=== PATIENT | female | born 1980 | race African-American/Black ===

== ENCOUNTER 2022-08-11 06:05 | Inpatient (IN) | payer MEDICAID, OTHER ==
[~2022-08-11] VITALS: Ht 152.4 cm; Wt 113.4 kg
[~2022-08-11 06:05] MED LIST: ACET-3163 MT; AMLO5TAB88 MT; HYDR-4001 MT; LANTUSUD SUBCUT; LISI-186 MT; METF-873 PO
[2022-08-11 09:16] LABS: CLARITY URINE CLOUDY (CLEAR); COLOR URINE YELLOW (YELLOW); KETONES URINE 4+ (NEGATIVE); LEUKOCYTE ESTERASE URINE 2+ (NEGATIVE); NITRITE URINE NEGATIVE (NEGATIVE); OCCULT BLOOD URINE 1+ (NEGATIVE); PH URINE 5.5 (4.5-8.0); PROTEIN URINE 1+ (NEGATIVE); SPECIFIC GRAVITY URINE 1.043 (1.005-1.030)
[2022-08-11] MEDS ORDERED: KETOROLAC 30MG/ML VIAL IV ONE (09:30)
[2022-08-11] MEDS ORDERED: SODIUM CHLORIDE 0.9% 1,000 ML IV ONE ×2 (09:30→10:30)
[2022-08-11] MEDS ORDERED: ONDANSETRON HCL 4MG/2ML INJ IV ONE (09:30)
[2022-08-11 09:51] LABS: HEMATOCRIT. 36.7 % (36.0-48.0); HEMOGLOBIN. 12.2 g/dL (12.0-16.0); MEAN CORPUSCULAR HEMOGLOBIN 29.4 pg (28.0-32.0); MEAN CORPUSCULAR VOLUME 88.6 fL (81.0-99.0); MEAN PLATELET VOLUME 9.2 fl (7.4-10.4); PLATELET 366 x1000/uL (130-400); RED BLOOD CELL COUNT 4.14 mill/uL (4.2-5.4); RED CELL DISTRIBUTION WIDTH 13.9 % (11.6-14.6)
[2022-08-11 09:58] LABS: CHLORIDE 96 mEq/L (98-107)
[2022-08-11 10:34] LABS: PLATELET ESTIMATE NORMAL
[2022-08-11 10:52] LABS: BG BASE EXCESS -2.8 mmol/L (-2.0-2.0); BG CARBOXYHEMOGLOBIN 0.7 % (0.5-1.5); BG DEOXYHEMOGLOBIN 3.5 % (0.0-5.0); BG HCO3 ACT 20.3 mmol/L (22.0-26.0); BG METHEMOGLOBIN 0.4 % (0.0-1.5); BG OXYGEN SATURATION 96.5 % (92.0-98.5); BG OXYHEMOGLOBIN 95.4 % (94.0-97.0); BG PCO2 30.6 mmHg (35.0-45.0); BG PO2 87.3 mmHg (75.0-100.0); BG SAMPLE SITE RIGHT RADIAL; BG TOTAL HEMOGLOBIN 12.6 g/dL (12.0-18.0); BG VENT MODE ROOM AIR
[2022-08-11] MEDS ORDERED: IOHEXOL-350 100 ML BOTTLE ONE (11:52)
[2022-08-11] MEDS ORDERED: IOHEXOL-300 100 ML BOTTLE ONE (11:53)
[2022-08-11] MEDS: DOXYCYCLINE 100MG in DEXTROSE 5% WATER 100ML IV SCH ×3 (12:15→15:40)
[2022-08-11] MEDS ORDERED: MORPHINE SULFATE 4 MG/ML CPJ (NOT FOR IM USE) IV ONE (12:45)
[2022-08-11] MEDS: METRONIDAZOLE 500 MG PREMIX 100 ML IV SCH ×2 (13:00→15:48)
[2022-08-11] MEDS: CEFTRIAXONE 1 G PREMIX 50 ML IV SCH ×2 (13:00→16:30)
[2022-08-11 17:00] VITALS: BP 128/67
[2022-08-11 17:30] VITALS: BP 128/67
[2022-08-11] MEDS ORDERED: ONDANSETRON HCL 4MG/2ML INJ IV PRN (18:15)
[2022-08-11] MEDS: SODIUM CHLORIDE 0.9% 1,000 ML IV SCH (18:15)
[2022-08-11] MEDS ORDERED: DEXTROSE 50% WATER 50ML SYRINGE IV PRN (18:15)
[2022-08-11 20:00] VITALS: BP 140/81
[2022-08-11] MEDS ORDERED: NALOXONE HCL 0.4MG/ML VIAL IV PRN (20:15)
[2022-08-11] MEDS: MORPHINE SULFATE 2 MG/ML CPJ (NOT FOR IM USE) IV PRN (20:37)
[2022-08-11] MEDS ORDERED: INSULIN LISPRO 100 UNITS/ML SUBCUT SCH (21:00)
[2022-08-11] MEDS ORDERED: DOXYCYCLINE HYCLATE 100 MG/VIAL IV ONE (21:00)
[2022-08-11] MEDS: BLOOD SUGAR DIAGNOSTIC STRIP TEST SCH (21:02)
[2022-08-11] MEDS: PIPERACILLIN/TAZOBACTAM 3.375 G in DEXTROSE 5% WATER 50 ML IV SCH (21:02)
[2022-08-11] MEDS ORDERED: PIPERACILLIN/TAZOBACTAM 3.375 G in DEXTROSE 5% WATER 50 ML IV SCH (22:00)
[2022-08-11] MEDS: INSULIN LISPRO 100 UNITS/ML SUBCUT SCH (22:00)
[2022-08-12] VITALS: BP 133/82
[2022-08-12] MEDS: MORPHINE SULFATE 2 MG/ML CPJ (NOT FOR IM USE) IV PRN ×5 (01:24→22:13)
[2022-08-12 04:00] VITALS: BP 124/73
[2022-08-12] MEDS: PIPERACILLIN/TAZOBACTAM 3.375 G in DEXTROSE 5% WATER 50 ML IV SCH ×3 (05:46→22:20)
[2022-08-12 06:19] LABS: HEMATOCRIT. 32.8 % (36.0-48.0); HEMOGLOBIN. 10.6 g/dL (12.0-16.0); MEAN CORPUSCULAR HEMOGLOBIN 28.2 pg (28.0-32.0); MEAN CORPUSCULAR VOLUME 87.4 fL (81.0-99.0); MEAN PLATELET VOLUME 8.9 fl (7.4-10.4); PLATELET 318 x1000/uL (130-400); RED BLOOD CELL COUNT 3.75 mill/uL (4.2-5.4); RED CELL DISTRIBUTION WIDTH 14.2 % (11.6-14.6)
[2022-08-12] MEDS: INSULIN LISPRO 100 UNITS/ML SUBCUT SCH ×4 (07:29→22:39)
[2022-08-12] MEDS: SODIUM CHLORIDE 0.9% 1,000 ML IV SCH ×2 (07:29→22:31)
[2022-08-12 07:51] LABS: CHLORIDE 102 mEq/L (98-107)
[2022-08-12 08:00] VITALS: BP 139/77
[2022-08-12] MEDS: BLOOD SUGAR DIAGNOSTIC STRIP TEST SCH ×4 (09:39→21:00)
[2022-08-12] MEDS: PANTOPRAZOLE SODIUM 40 MG/VIAL IV SCH (09:41)
[2022-08-12 14:04] LABS: PLATELET ESTIMATE NORMAL
[2022-08-12 20:00] VITALS: BP 142/85
[2022-08-12] MEDS ORDERED: INSULIN GLARGINE 100 UNITS/ML SUBCUT SCH (22:00)
[2022-08-13] VITALS (18 sets, daily range): BP systolic 107–147; BP diastolic 58–77
[2022-08-13] MEDS: PIPERACILLIN/TAZOBACTAM 3.375 G in DEXTROSE 5% WATER 50 ML IV SCH ×3 (06:01→22:16)
[2022-08-13] MEDS: INSULIN LISPRO 100 UNITS/ML SUBCUT SCH ×4 (06:30→22:19)
[2022-08-13 06:55] LABS: HEMATOCRIT. 31.5 % (36.0-48.0); HEMOGLOBIN. 10.5 g/dL (12.0-16.0); MEAN CORPUSCULAR HEMOGLOBIN 29.2 pg (28.0-32.0); MEAN CORPUSCULAR VOLUME 87.6 fL (81.0-99.0); MEAN PLATELET VOLUME 8.9 fl (7.4-10.4); PLATELET 307 x1000/uL (130-400); RED BLOOD CELL COUNT 3.59 mill/uL (4.2-5.4); RED CELL DISTRIBUTION WIDTH 14.2 % (11.6-14.6)
[2022-08-13] MEDS: BLOOD SUGAR DIAGNOSTIC STRIP TEST SCH ×4 (07:40→21:24)
[2022-08-13 08:21] LABS: CHLORIDE 101 mEq/L (98-107)
[2022-08-13 08:39] LABS: INR 1.5; PROTHROMBIN TIME 15.6 sec (9.6-11.0)
[2022-08-13] MEDS: PANTOPRAZOLE SODIUM 40 MG/VIAL IV SCH (09:01)
[2022-08-13] MEDS: MORPHINE SULFATE 2 MG/ML CPJ (NOT FOR IM USE) IV PRN (09:03)
[2022-08-13] MEDS: INSULIN GLARGINE 100 UNITS/ML SUBCUT SCH ×2 (10:30→22:19)
[2022-08-13] MEDS: SODIUM CHLORIDE 0.9% 1,000 ML IV SCH ×2 (11:02→23:35)
[2022-08-13] MEDS ORDERED: SODIUM BICARBONATE 4% (2.4MEQ) 5ML VIAL IV ONE (12:03)
[2022-08-13] MEDS ORDERED: MIDAZOLAM HCL 2 MG/2 ML VIAL ONE (12:04)
[2022-08-13] MEDS ORDERED: LIDOCAINE HCL/PF 1% 10 MG/ML 5ML VIAL ONE (12:04)
[2022-08-13] MEDS ORDERED: FENTANYL CITRATE/PF 50MCG/ML 2ML VIAL ONE (12:04)
[2022-08-13] MEDS ORDERED: MIDAZOLAM HCL 2 MG/2 ML VIAL IV ONE (14:30)
[2022-08-13] MEDS ORDERED: MIDAZOLAM HCL 5 MG/5 ML VIAL IV ONE (14:30)
[2022-08-13] MEDS ORDERED: FENTANYL CITRATE/PF 50MCG/ML 2ML VIAL IV ONE (14:30)
[2022-08-13 17:31] LABS: PLATELET ESTIMATE NORMAL
[2022-08-13] MEDS: DOXYCYCLINE 100 MG in DEXT 5% WATER 100 ML IV SCH (21:24)
[2022-08-14] VITALS (7 sets, daily range): BP systolic 107–141; BP diastolic 57–70
[2022-08-14] MEDS: MORPHINE SULFATE 2 MG/ML CPJ (NOT FOR IM USE) IV PRN ×2 (01:35→09:24)
[2022-08-14] MEDS: PIPERACILLIN/TAZOBACTAM 3.375 G in DEXTROSE 5% WATER 50 ML IV SCH ×3 (05:40→23:19)
[2022-08-14 06:07] LABS: NEISSERIA GONORRHOEAE NAA Negative (Negative)
[2022-08-14 06:48] LABS: BASOPHILS % 0.2 % (0.0-2.0); EOSINOPHILS % 0.2 % (0.0-5.0); HEMATOCRIT. 29.7 % (36.0-48.0); HEMOGLOBIN. 9.9 g/dL (12.0-16.0); LYMPHOCYTES % 7.1 % (20.0-50.0); MEAN CORPUSCULAR HEMOGLOBIN 28.9 pg (28.0-32.0); MEAN PLATELET VOLUME 8.9 fl (7.4-10.4); MONOCYTES % 4.5 % (2.0-8.0); PLATELET 230 x1000/uL (130-400); RED BLOOD CELL COUNT 3.42 mill/uL (4.2-5.4); RED CELL DISTRIBUTION WIDTH 14.5 % (11.6-14.6)
[2022-08-14 07:03] LABS: CHLORIDE 100 mEq/L (98-107)
[2022-08-14] MEDS: INSULIN LISPRO 100 UNITS/ML SUBCUT SCH ×6 (07:52→22:10)
[2022-08-14] MEDS: BLOOD SUGAR DIAGNOSTIC STRIP TEST SCH ×4 (09:08→21:46)
[2022-08-14] MEDS: FAMOTIDINE 20MG/2ML VIAL IV SCH ×2 (09:24→21:37)
[2022-08-14] MEDS: DOXYCYCLINE 100 MG in DEXT 5% WATER 100 ML IV SCH ×2 (09:24→21:37)
[2022-08-14] MEDS: INSULIN GLARGINE 100 UNITS/ML SUBCUT SCH ×2 (09:38→22:05)
[2022-08-14] MEDS ORDERED: POTASSIUM CHLORIDE 20MEQ TABLET SR PO NR (12:30)
[2022-08-14] MEDS: SODIUM CHLORIDE 0.9% 1,000 ML IV SCH (13:50)
[2022-08-14] MEDS: ACETAMINOPHEN 325MG TABLET PO PRN (17:49)
[2022-08-15 04:00] VITALS: BP 139/66
[2022-08-15] MEDS: PIPERACILLIN/TAZOBACTAM 3.375 G in DEXTROSE 5% WATER 50 ML IV SCH ×2 (06:04→14:25)
[2022-08-15] MEDS: HYDROCODONE/ACETAMINOPHEN 5/325MG TABLET PO PRN ×2 (06:38→18:48)
[2022-08-15 07:31] LABS: HEMATOCRIT. 29.2 % (36.0-48.0); HEMOGLOBIN. 9.7 g/dL (12.0-16.0); MEAN CORPUSCULAR HEMOGLOBIN 29.2 pg (28.0-32.0); MEAN CORPUSCULAR VOLUME 87.2 fL (81.0-99.0); MEAN PLATELET VOLUME 8.8 fl (7.4-10.4); PLATELET 235 x1000/uL (130-400); RED BLOOD CELL COUNT 3.34 mill/uL (4.2-5.4); RED CELL DISTRIBUTION WIDTH 14.7 % (11.6-14.6)
[2022-08-15 07:44] LABS: CHLORIDE 101 mEq/L (98-107)
[2022-08-15 08:00] VITALS: BP 116/61
[2022-08-15] MEDS: FAMOTIDINE 20MG/2ML VIAL IV SCH ×2 (08:27→21:33)
[2022-08-15] MEDS: DOXYCYCLINE 100 MG in DEXT 5% WATER 100 ML IV SCH ×2 (08:27→21:33)
[2022-08-15] MEDS: INSULIN LISPRO 100 UNITS/ML SUBCUT SCH ×7 (08:30→21:50)
[2022-08-15] MEDS: INSULIN GLARGINE 100 UNITS/ML SUBCUT SCH ×2 (08:32→21:50)
[2022-08-15] MEDS: BLOOD SUGAR DIAGNOSTIC STRIP TEST SCH ×4 (09:00→21:52)
[2022-08-15] MEDS: SODIUM CHLORIDE 0.9% 1,000 ML IV SCH (14:00)
[2022-08-15 14:22] LABS: PLATELET ESTIMATE NORMAL
[2022-08-15] MEDS ORDERED: POTASSIUM CHLORIDE 20MEQ TABLET SR PO NR (18:15)
[2022-08-15] MEDS ORDERED: DIATR MEGLU/DIATRIZOATE SOLN 30ML PO SCH (19:30)
[2022-08-15 20:00] VITALS: BP 133/70
[2022-08-15] MEDS: AMPICILLIN SOD/SULBACTAM NA 3 G in SODIUM CHLORIDE 0.9% 100 ML IV SCH (21:32)
[2022-08-16] VITALS: BP 114/64
[2022-08-16] MEDS: SODIUM CHLORIDE 0.9% 1,000 ML IV SCH ×3 (02:16→18:15)
[2022-08-16] MEDS: AMPICILLIN SOD/SULBACTAM NA 3 G in SODIUM CHLORIDE 0.9% 100 ML IV SCH ×4 (02:16→20:34)
[2022-08-16] MEDS: HYDROCODONE/ACETAMINOPHEN 5/325MG TABLET PO PRN (03:35)
[2022-08-16 04:00] VITALS: BP 132/70
[2022-08-16] MEDS: INSULIN LISPRO 100 UNITS/ML SUBCUT SCH ×7 (07:02→21:00)
[2022-08-16 08:00] VITALS: BP 117/66
[2022-08-16] MEDS ORDERED: ENOXAPARIN 40MG/0.4ML SYR SUBCUT SCH (09:00)
[2022-08-16] MEDS: DOXYCYCLINE 100 MG in DEXT 5% WATER 100 ML IV SCH ×2 (09:37→21:38)
[2022-08-16] MEDS: FAMOTIDINE 20MG/2ML VIAL IV SCH ×2 (09:38→20:34)
[2022-08-16] MEDS: ENOXAPARIN 30MG/0.3ML SYR SUBCUT SCH ×2 (09:39→21:38)
[2022-08-16] MEDS: BLOOD SUGAR DIAGNOSTIC STRIP TEST SCH ×4 (09:57→21:38)
[2022-08-16 10:09] LABS: BASOPHILS % 0.5 % (0.0-2.0); EOSINOPHILS % 0.7 % (0.0-5.0); HEMATOCRIT. 29.6 % (36.0-48.0); HEMOGLOBIN. 9.7 g/dL (12.0-16.0); LYMPHOCYTES % 9.1 % (20.0-50.0); MEAN CORPUSCULAR HEMOGLOBIN 28.9 pg (28.0-32.0); MEAN CORPUSCULAR VOLUME 87.8 fL (81.0-99.0); MEAN PLATELET VOLUME 8.3 fl (7.4-10.4); MONOCYTES % 4.9 % (2.0-8.0); NEUTROPHILS % 84.8 % (40.0-76.0); PLATELET 267 x1000/uL (130-400); RED BLOOD CELL COUNT 3.37 mill/uL (4.2-5.4); RED CELL DISTRIBUTION WIDTH 14.6 % (11.6-14.6)
[2022-08-16] MEDS: INSULIN GLARGINE 100 UNITS/ML SUBCUT SCH ×2 (10:15→22:00)
[2022-08-16 11:08] LABS: CHLORIDE 104 mEq/L (98-107)
[2022-08-16 12:00] VITALS: BP 129/67
[2022-08-16 16:00] VITALS: BP 107/69
[2022-08-16] MEDS: ACETAMINOPHEN 325MG TABLET PO PRN (19:23)
[2022-08-16 20:00] VITALS: BP 115/54
[2022-08-17] VITALS: BP 113/63
[2022-08-17] MEDS: AMPICILLIN SOD/SULBACTAM NA 3 G in SODIUM CHLORIDE 0.9% 100 ML IV SCH ×4 (02:48→20:54)
[2022-08-17] MEDS: ACETAMINOPHEN 325MG TABLET PO PRN (03:16)
[2022-08-17 04:00] VITALS: BP 115/65
[2022-08-17] MEDS: INSULIN LISPRO 100 UNITS/ML SUBCUT SCH ×7 (06:30→21:00)
[2022-08-17 07:12] LABS: BASOPHILS % 0.3 % (0.0-2.0); EOSINOPHILS % 0.7 % (0.0-5.0); HEMATOCRIT. 29.3 % (36.0-48.0); HEMOGLOBIN. 9.4 g/dL (12.0-16.0); LYMPHOCYTES % 9.1 % (20.0-50.0); MEAN CORPUSCULAR HEMOGLOBIN 28.1 pg (28.0-32.0); MEAN CORPUSCULAR VOLUME 87.1 fL (81.0-99.0); MEAN PLATELET VOLUME 8.3 fl (7.4-10.4); MONOCYTES % 5.1 % (2.0-8.0); NEUTROPHILS % 84.8 % (40.0-76.0); PLATELET 310 x1000/uL (130-400); RED BLOOD CELL COUNT 3.36 mill/uL (4.2-5.4); RED CELL DISTRIBUTION WIDTH 14.2 % (11.6-14.6)
[2022-08-17 07:29] LABS: CHLORIDE 104 mEq/L (98-107)
[2022-08-17] MEDS: SODIUM CHLORIDE 0.9% 1,000 ML IV SCH ×2 (07:56→10:15)
[2022-08-17 08:00] VITALS: BP 115/76
[2022-08-17] MEDS: DOCUSATE SODIUM 250MG CAPSULE PO SCH (08:35)
[2022-08-17] MEDS: FAMOTIDINE 20MG TABLET PO SCH ×2 (08:36→20:55)
[2022-08-17] MEDS: ENOXAPARIN 30MG/0.3ML SYR SUBCUT SCH ×2 (08:37→20:54)
[2022-08-17] MEDS ORDERED: DIATR MEGLU/DIATRIZOATE SOLN 30ML PO NR (09:30)
[2022-08-17] MEDS: DOXYCYCLINE 100 MG in DEXT 5% WATER 100 ML IV SCH ×2 (09:37→22:07)
[2022-08-17] MEDS ORDERED: POTASSIUM CHLORIDE 20MEQ TABLET SR PO NR (10:30)
[2022-08-17] MEDS: INSULIN GLARGINE 100 UNITS/ML SUBCUT SCH ×2 (10:31→22:00)
[2022-08-17] MEDS: BLOOD SUGAR DIAGNOSTIC STRIP TEST SCH ×4 (11:22→21:00)
[2022-08-17] MEDS ORDERED: IOHEXOL-300 100 ML BOTTLE ONE (11:41)
[2022-08-17] MEDS ORDERED: DIATR MEGLU/DIATRIZOATE SOLN 120ML ONE (11:41)
[2022-08-17 12:00] VITALS: BP 120/72
[2022-08-17 16:00] VITALS: BP 128/74
[2022-08-17 20:00] VITALS: BP 129/67
[2022-08-18] VITALS: BP 127/71
[2022-08-18] MEDS: AMPICILLIN SOD/SULBACTAM NA 3 G in SODIUM CHLORIDE 0.9% 100 ML IV SCH ×4 (02:10→20:00)
[2022-08-18 04:00] VITALS: BP 118/60
[2022-08-18 07:15] LABS: HEMATOCRIT. 27.9 % (36.0-48.0); HEMOGLOBIN. 9.2 g/dL (12.0-16.0); MEAN CORPUSCULAR HEMOGLOBIN 28.6 pg (28.0-32.0); MEAN CORPUSCULAR VOLUME 86.7 fL (81.0-99.0); MEAN PLATELET VOLUME 8.1 fl (7.4-10.4); PLATELET 357 x1000/uL (130-400); RED BLOOD CELL COUNT 3.22 mill/uL (4.2-5.4); RED CELL DISTRIBUTION WIDTH 14.7 % (11.6-14.6)
[2022-08-18 07:17] LABS: CHLORIDE 104 mEq/L (98-107)
[2022-08-18 08:00] VITALS: BP 118/72
[2022-08-18] MEDS: INSULIN LISPRO 100 UNITS/ML SUBCUT SCH ×7 (08:00→20:39)
[2022-08-18] MEDS: FAMOTIDINE 20MG TABLET PO SCH ×2 (08:07→20:35)
[2022-08-18] MEDS: DOCUSATE SODIUM 250MG CAPSULE PO SCH (08:07)
[2022-08-18] MEDS: ENOXAPARIN 30MG/0.3ML SYR SUBCUT SCH ×2 (08:09→20:34)
[2022-08-18] MEDS: BLOOD SUGAR DIAGNOSTIC STRIP TEST SCH ×4 (09:40→20:39)
[2022-08-18] MEDS: INSULIN GLARGINE 100 UNITS/ML SUBCUT SCH ×2 (09:49→12:25)
[2022-08-18] MEDS: SODIUM CHLORIDE 0.9% 1,000 ML IV SCH ×2 (10:15→23:35)
[2022-08-18] MEDS: DOXYCYCLINE 100 MG in DEXT 5% WATER 100 ML IV SCH ×2 (11:49→21:00)
[2022-08-18 12:00] VITALS: BP 122/68
[2022-08-18 15:11] LABS: PLATELET ESTIMATE NORMAL
[2022-08-18 16:00] VITALS: BP 142/80
[2022-08-18] MEDS: HYDROCODONE/ACETAMINOPHEN 5/325MG TABLET PO PRN (19:50)
[2022-08-18 20:00] VITALS: BP 137/81
[2022-08-19] VITALS: BP 132/79
[2022-08-19] MEDS: AMPICILLIN SOD/SULBACTAM NA 3 G in SODIUM CHLORIDE 0.9% 100 ML IV SCH ×4 (02:00→21:32)
[2022-08-19 04:00] VITALS: BP 131/80
[2022-08-19 06:46] LABS: BASOPHILS % 0.4 % (0.0-2.0); EOSINOPHILS % 1.3 % (0.0-5.0); HEMATOCRIT. 25.9 % (36.0-48.0); HEMOGLOBIN. 8.7 g/dL (12.0-16.0); LYMPHOCYTES % 11.7 % (20.0-50.0); MEAN CORPUSCULAR HEMOGLOBIN 29.2 pg (28.0-32.0); MEAN PLATELET VOLUME 7.8 fl (7.4-10.4); NEUTROPHILS % 81.6 % (40.0-76.0); PLATELET 420 x1000/uL (130-400); RED BLOOD CELL COUNT 2.98 mill/uL (4.2-5.4); RED CELL DISTRIBUTION WIDTH 14.1 % (11.6-14.6)
[2022-08-19] MEDS: INSULIN LISPRO 100 UNITS/ML SUBCUT SCH ×7 (06:52→21:38)
[2022-08-19] MEDS: DOXYCYCLINE 100 MG in DEXT 5% WATER 100 ML IV SCH ×3 (07:32→22:44)
[2022-08-19] MEDS ORDERED: LIDOCAINE HCL/PF 1% 10 MG/ML 5ML VIAL ONE (07:43)
[2022-08-19 07:52] LABS: CHLORIDE 103 mEq/L (98-107)
[2022-08-19 08:00] VITALS: BP 130/72
[2022-08-19] MEDS: BLOOD SUGAR DIAGNOSTIC STRIP TEST SCH ×4 (09:00→21:33)
[2022-08-19] MEDS: FAMOTIDINE 20MG TABLET PO SCH ×2 (09:15→21:31)
[2022-08-19] MEDS: DOCUSATE SODIUM 250MG CAPSULE PO SCH (09:15)
[2022-08-19] MEDS: ENOXAPARIN 30MG/0.3ML SYR SUBCUT SCH ×2 (09:15→21:32)
[2022-08-19] MEDS ORDERED: DOXYCYCLINE 100 MG in DEXT 5% WATER 100 ML IV SCH (09:45)
[2022-08-19] MEDS: INSULIN GLARGINE 100 UNITS/ML SUBCUT SCH ×2 (10:09→21:33)
[2022-08-19] MEDS ORDERED: POTASSIUM CHLORIDE 20MEQ TABLET SR PO NR (11:30)
[2022-08-19 11:58] VITALS: BP 122/71
[2022-08-19] MEDS: SODIUM CHLORIDE 0.9% 1,000 ML IV SCH (13:38)
[2022-08-19 16:00] VITALS: BP 126/74
[2022-08-19 20:00] VITALS: BP 114/80
[2022-08-20] VITALS: BP 102/69
[2022-08-20] MEDS: SODIUM CHLORIDE 0.9% 1,000 ML IV SCH ×2 (01:55→15:35)
[2022-08-20] MEDS: AMPICILLIN SOD/SULBACTAM NA 3 G in SODIUM CHLORIDE 0.9% 100 ML IV SCH ×4 (01:55→21:12)
[2022-08-20 04:00] VITALS: BP 124/83
[2022-08-20] MEDS: INSULIN LISPRO 100 UNITS/ML SUBCUT SCH ×7 (06:15→21:00)
[2022-08-20 07:02] LABS: BASOPHILS % 0.4 % (0.0-2.0); EOSINOPHILS % 1.5 % (0.0-5.0); HEMATOCRIT. 25.4 % (36.0-48.0); HEMOGLOBIN. 8.6 g/dL (12.0-16.0); MEAN CORPUSCULAR HEMOGLOBIN 29.2 pg (28.0-32.0); MEAN CORPUSCULAR VOLUME 86.6 fL (81.0-99.0); MEAN PLATELET VOLUME 7.8 fl (7.4-10.4); MONOCYTES % 5.9 % (2.0-8.0); NEUTROPHILS % 80.2 % (40.0-76.0); PLATELET 459 x1000/uL (130-400); RED BLOOD CELL COUNT 2.94 mill/uL (4.2-5.4); RED CELL DISTRIBUTION WIDTH 14.6 % (11.6-14.6)
[2022-08-20 07:18] LABS: CHLORIDE 106 mEq/L (98-107)
[2022-08-20 08:00] VITALS: BP 108/81
[2022-08-20] MEDS: BLOOD SUGAR DIAGNOSTIC STRIP TEST SCH ×4 (09:00→20:58)
[2022-08-20] MEDS: DOCUSATE SODIUM 250MG CAPSULE PO SCH (09:24)
[2022-08-20] MEDS: FAMOTIDINE 20MG TABLET PO SCH ×2 (09:24→20:56)
[2022-08-20] MEDS: ENOXAPARIN 30MG/0.3ML SYR SUBCUT SCH ×2 (09:25→21:12)
[2022-08-20 12:00] VITALS: BP 110/88
[2022-08-20] MEDS: INSULIN GLARGINE 100 UNITS/ML SUBCUT SCH ×2 (13:08→22:00)
[2022-08-20] MEDS: DOXYCYCLINE 100 MG in DEXT 5% WATER 100 ML IV SCH ×2 (13:10→23:59)
[2022-08-20] MEDS ORDERED: POTASSIUM CHLORIDE 20MEQ TABLET SR PO NR (13:30)
[2022-08-20 16:00] VITALS: BP 112/86
[2022-08-20 20:00] VITALS: BP 148/85
[2022-08-21] VITALS: BP 145/77
[2022-08-21] MEDS: AMPICILLIN SOD/SULBACTAM NA 3 G in SODIUM CHLORIDE 0.9% 100 ML IV SCH ×3 (02:30→20:00)
[2022-08-21 04:00] VITALS: BP 142/84
[2022-08-21] MEDS: SODIUM CHLORIDE 0.9% 1,000 ML IV SCH ×2 (05:36→05:38)
[2022-08-21] MEDS: INSULIN LISPRO 100 UNITS/ML SUBCUT SCH ×7 (07:00→21:00)
[2022-08-21 07:30] LABS: CHLORIDE 105 mEq/L (98-107)
[2022-08-21 07:33] LABS: BASOPHILS % 0.4 % (0.0-2.0); EOSINOPHILS % 1.7 % (0.0-5.0); HEMATOCRIT. 26.4 % (36.0-48.0); HEMOGLOBIN. 8.8 g/dL (12.0-16.0); LYMPHOCYTES % 11.8 % (20.0-50.0); MEAN CORPUSCULAR HEMOGLOBIN 29.1 pg (28.0-32.0); MEAN CORPUSCULAR VOLUME 87.8 fL (81.0-99.0); MEAN PLATELET VOLUME 7.5 fl (7.4-10.4); MONOCYTES % 5.5 % (2.0-8.0); NEUTROPHILS % 80.6 % (40.0-76.0); PLATELET 521 x1000/uL (130-400); RED BLOOD CELL COUNT 3.01 mill/uL (4.2-5.4); RED CELL DISTRIBUTION WIDTH 14.1 % (11.6-14.6)
[2022-08-21 07:58] VITALS: BP 120/78
[2022-08-21] MEDS: DOCUSATE SODIUM 250MG CAPSULE PO SCH (08:11)
[2022-08-21] MEDS: FAMOTIDINE 20MG TABLET PO SCH ×2 (08:11→21:41)
[2022-08-21] MEDS: ENOXAPARIN 30MG/0.3ML SYR SUBCUT SCH ×2 (08:11→21:42)
[2022-08-21] MEDS: INSULIN GLARGINE 100 UNITS/ML SUBCUT SCH ×2 (09:39→21:50)
[2022-08-21] MEDS: BLOOD SUGAR DIAGNOSTIC STRIP TEST SCH ×3 (11:37→21:40)
[2022-08-21 12:00] VITALS: BP 149/88
[2022-08-21 16:00] VITALS: BP 135/90
[2022-08-21 20:12] VITALS: BP 143/92
[2022-08-21] MEDS: DOXYCYCLINE 100 MG in DEXT 5% WATER 100 ML IV SCH (23:00)
[2022-08-22 00:22] VITALS: BP 150/74
[2022-08-22] MEDS: AMPICILLIN SOD/SULBACTAM NA 3 G in SODIUM CHLORIDE 0.9% 100 ML IV SCH ×4 (02:00→20:43)
[2022-08-22 04:17] VITALS: BP 142/78
[2022-08-22] MEDS: INSULIN LISPRO 100 UNITS/ML SUBCUT SCH ×7 (06:27→21:00)
[2022-08-22] MEDS: BLOOD SUGAR DIAGNOSTIC STRIP TEST SCH ×4 (06:30→20:56)
[2022-08-22] MEDS: SODIUM CHLORIDE 0.9% 1,000 ML IV SCH ×2 (07:35→21:04)
[2022-08-22 08:00] VITALS: BP 139/77
[2022-08-22] MEDS: ENOXAPARIN 30MG/0.3ML SYR SUBCUT SCH ×2 (08:28→20:57)
[2022-08-22] MEDS: FAMOTIDINE 20MG TABLET PO SCH ×2 (08:28→20:43)
[2022-08-22] MEDS: DOCUSATE SODIUM 250MG CAPSULE PO SCH (08:28)
[2022-08-22] MEDS: INSULIN GLARGINE 100 UNITS/ML SUBCUT SCH ×2 (09:50→21:14)
[2022-08-22] MEDS: DOXYCYCLINE 100 MG in DEXT 5% WATER 100 ML IV SCH (11:00)
[2022-08-22] MEDS ORDERED: AMOX1TAB16 MT (11:21)
[2022-08-22] MEDS ORDERED: DOXY100T2 MT (11:21)
[2022-08-22 11:30] VITALS: BP 151/93
[2022-08-22 11:33] LABS: BASOPHILS % 0.4 % (0.0-2.0); EOSINOPHILS % 0.9 % (0.0-5.0); HEMATOCRIT. 26.3 % (36.0-48.0); HEMOGLOBIN. 8.6 g/dL (12.0-16.0); LYMPHOCYTES % 12.4 % (20.0-50.0); MEAN CORPUSCULAR HEMOGLOBIN 28.3 pg (28.0-32.0); MEAN CORPUSCULAR VOLUME 86.8 fL (81.0-99.0); MEAN PLATELET VOLUME 7.3 fl (7.4-10.4); MONOCYTES % 4.4 % (2.0-8.0); NEUTROPHILS % 81.9 % (40.0-76.0); PLATELET 618 x1000/uL (130-400); RED BLOOD CELL COUNT 3.03 mill/uL (4.2-5.4); RED CELL DISTRIBUTION WIDTH 14.4 % (11.6-14.6)
[2022-08-22 11:35] LABS: CHLORIDE 105 mEq/L (98-107)
[2022-08-22 16:00] VITALS: BP 140/55
[2022-08-22 20:00] VITALS: BP 138/68
[2022-08-23] VITALS: BP 135/74
[2022-08-23] MEDS: DOXYCYCLINE 100 MG in DEXT 5% WATER 100 ML IV SCH ×3 (01:54→23:07)
[2022-08-23] MEDS: AMPICILLIN SOD/SULBACTAM NA 3 G in SODIUM CHLORIDE 0.9% 100 ML IV SCH ×4 (03:03→19:55)
[2022-08-23 04:00] VITALS: BP 142/70
[2022-08-23] MEDS: INSULIN LISPRO 100 UNITS/ML SUBCUT SCH ×5 (06:30→21:35)
[2022-08-23] MEDS: BLOOD SUGAR DIAGNOSTIC STRIP TEST SCH ×4 (06:40→20:11)
[2022-08-23 08:00] VITALS: BP 140/84
[2022-08-23] MEDS: FAMOTIDINE 20MG TABLET PO SCH ×2 (08:27→19:54)
[2022-08-23] MEDS: DOCUSATE SODIUM 250MG CAPSULE PO SCH (08:27)
[2022-08-23] MEDS: ENOXAPARIN 30MG/0.3ML SYR SUBCUT SCH ×2 (08:28→20:15)
[2022-08-23 11:11] LABS: BASOPHILS % 0.4 % (0.0-2.0); EOSINOPHILS % 1.3 % (0.0-5.0); HEMATOCRIT. 28.9 % (36.0-48.0); HEMOGLOBIN. 9.4 g/dL (12.0-16.0); MEAN CORPUSCULAR HEMOGLOBIN 28.5 pg (28.0-32.0); MEAN CORPUSCULAR VOLUME 87.3 fL (81.0-99.0); MEAN PLATELET VOLUME 7.2 fl (7.4-10.4); MONOCYTES % 4.9 % (2.0-8.0); NEUTROPHILS % 78.4 % (40.0-76.0); PLATELET 685 x1000/uL (130-400); RED BLOOD CELL COUNT 3.31 mill/uL (4.2-5.4); RED CELL DISTRIBUTION WIDTH 14.4 % (11.6-14.6)
[2022-08-23] MEDS: SODIUM CHLORIDE 0.9% 1,000 ML IV SCH (13:23)
[2022-08-23 20:00] VITALS: BP 171/83
[2022-08-23] MEDS: INSULIN GLARGINE 100 UNITS/ML SUBCUT SCH (23:17)
[2022-08-23 23:38] VITALS: BP 142/82
[2022-08-24] MEDS: SODIUM CHLORIDE 0.9% 1,000 ML IV SCH (00:05)
[2022-08-24] MEDS: AMPICILLIN SOD/SULBACTAM NA 3 G in SODIUM CHLORIDE 0.9% 100 ML IV SCH ×2 (02:16→08:31)
[2022-08-24 04:00] VITALS: BP 139/62
[2022-08-24] MEDS: BLOOD SUGAR DIAGNOSTIC STRIP TEST SCH (06:51)
[2022-08-24] MEDS: INSULIN LISPRO 100 UNITS/ML SUBCUT SCH (06:52)
[2022-08-24 08:00] VITALS: BP 138/81
[2022-08-24] MEDS: DOCUSATE SODIUM 250MG CAPSULE PO SCH (08:31)
[2022-08-24] MEDS: ENOXAPARIN 30MG/0.3ML SYR SUBCUT SCH (08:32)
[2022-08-24] MEDS: FAMOTIDINE 20MG TABLET PO SCH (08:32)
[2022-08-24 09:04] LABS: BASOPHILS % 0.4 % (0.0-2.0); EOSINOPHILS % 1.4 % (0.0-5.0); HEMATOCRIT. 27.9 % (36.0-48.0); LYMPHOCYTES % 16.5 % (20.0-50.0); MEAN CORPUSCULAR HEMOGLOBIN 28.5 pg (28.0-32.0); MEAN CORPUSCULAR VOLUME 88.2 fL (81.0-99.0); MEAN PLATELET VOLUME 7.2 fl (7.4-10.4); MONOCYTES % 5.5 % (2.0-8.0); NEUTROPHILS % 76.2 % (40.0-76.0); PLATELET 602 x1000/uL (130-400); RED BLOOD CELL COUNT 3.17 mill/uL (4.2-5.4); RED CELL DISTRIBUTION WIDTH 14.8 % (11.6-14.6)
[2022-08-24] MEDS: INSULIN GLARGINE 100 UNITS/ML SUBCUT SCH (09:20)
[2022-08-24 09:47] VITALS: BP 138/81
== END 2022-08-24 11:50 | disposition home or self-care (01) | DRG 710 ==
LOC: ER 06:05 → 4WST 15:03 → EDBEDREQ 15:12 → EDBEDREQTM 15:12 → EDBEDREQSVC 15:12 → ENRESERV 16:11
PROVIDERS: ADMIT Internal Medicine; ATTEND Internal Medicine
PROC: 0W9J3ZX Drainage of Pelvic Cavity, Percutaneous Approach, Diagnostic (ICD-10-PCS; principal; 2022-08-13)
PROC: 05HY33Z Insertion of Infusion Device into Upper Vein, Percutaneous Approach (ICD-10-PCS; 2022-08-19)
PROC: B51M1ZA Fluoroscopy of Right Upper Extremity Veins using Low Osmolar Contrast, Guidance (ICD-10-PCS; 2022-08-19)
PROC: B54MZZA Ultrasonography of Right Upper Extremity Veins, Guidance (ICD-10-PCS; 2022-08-19)
DX: A41.9 Sepsis, unspecified organism (principal); E43 Unspecified severe protein-calorie malnutrition; E87.1 Hypo-osmolality and hyponatremia; R71.0 Precipitous drop in hematocrit; E11.65 Type 2 diabetes mellitus with hyperglycemia; E66.01 Morbid (severe) obesity due to excess calories; B96.20 Unspecified Escherichia coli [E. coli] as the cause of diseases classified elsewhere; I10 Essential (primary) hypertension; N70.93 Salpingitis and oophoritis, unspecified; Z20.822 Contact with and (suspected) exposure to COVID-19; Z91.013 Allergy to seafood; Z79.899 Other long term (current) drug therapy; Z68.42 Body mass index [BMI] 45.0-49.9, adult; Z79.84 Long term (current) use of oral hypoglycemic drugs
CPT/HCPCS: 36415; 36573; 36600; 74177; 76830; 76856; 77012; 80048; 80053; 81003; 82375; 82805; 82962; 83036; 83605; 84145; 85025; 87075; 87077; 87186; 87210; 87426; 87491; 87591; 93005; 97166; 97535; 99152; 99153; 99285; A6261; C1725; C1760; C1769; C1893; C9113; J0295; J0696; J1650; J1815; J1885; J2250; J2270; J2405; J2543; J3010; J3490; J7030; J7050; J7060; L8514; Q9963; Q9967; G0500